=== PATIENT | male | born 1940 | race Caucasian/White ===

== ENCOUNTER 2023-08-03 05:41 | Observation (INO) ==
[~2023-08-03 05:41] MED LIST: Buffered Lidocaine 1% SYRIN 1 ml INTRADERM ONE; Lactated Ringers 1000 ml BAG 1,000 ML IV SCH; Metoclopramide 5 MG/ML VIAL (10 mg) IV PRN; Naloxone 0.4 mg VIAL 0.4 mg/ml 1 ml VIAL IV PRN; Ondansetron 4 mg VIAL 2 MG/ML 2 ml VIAL IV PRN
[2023-08-03] MEDS ORDERED: Tranexamic Acid 1 GM/100ML BAG 2,000 MG/200 ML BAG IV ONE (06:15)
[2023-08-03] MEDS ORDERED: ceFAZolin 2 GM PREMIX 2 GM/50 ML BAG ONE (06:15)
[2023-08-03 06:28] LABS: Rapid COVID-19 Molecular Undetected (Undetected)
[2023-08-03] MEDS ORDERED: Bupivacaine 0.25% SDV PF 10 ML VIAL INJ ONE (09:23)
[2023-08-03] MEDS ORDERED: fentaNYL 100 mcg/2 ml 50 MCG/ML VIAL ONE ×3 (09:32→14:22)
[2023-08-03] MEDS ORDERED: ceFAZolin 2 GM in NS PREMIX 0 GM/0 ML BAG IVPB ONE (09:33)
[2023-08-03] MEDS ORDERED: Phenylephrine IV 10 MG/ML 1 ml VIAL ONE (09:33)
[2023-08-03] MEDS ORDERED: Lidocaine 2% PF 5 ML VIAL ONE (09:33)
[2023-08-03] MEDS ORDERED: Midazolam 2 mg/2 ml VIAL 1 mg/ml 2 ml VIAL (2 mg) ONE (09:51)
[2023-08-03] MEDS ORDERED: BUPIVACAINE **LIPOSOME/PF 13.3 MG/ML (266MG/ 20ML) VIAL (RESTRICTED) INFIL ONE (10:00)
[2023-08-03] MEDS ORDERED: Dexamethasone IV 4 MG/ML VIAL 1 ml VIAL ONE (10:23)
[2023-08-03] MEDS ORDERED: Ondansetron 4 mg VIAL 2 MG/ML 2 ml VIAL ONE (10:23)
[2023-08-03] MEDS: HYDROcodone/ACETAMIN 5/325 mg TAB PO PRN ×2 (13:19→14:21)
[2023-08-03] MEDS ORDERED: HYDROcodone/ACETAMIN 5/325 mg TAB ONE ×2 (13:19→14:20)
[2023-08-03] MEDS: fentaNYL 100 mcg/2 ml 50 MCG/ML VIAL IV PRN ×7 (13:54→14:49)
[2023-08-03] MEDS ORDERED: Lactulose 30 ml UDC PO PRN (15:02)
[2023-08-03] MEDS ORDERED: Ondansetron 4 mg VIAL 2 MG/ML 2 ml VIAL IV PRN (15:02)
[2023-08-03] MEDS ORDERED: Morphine 2 MG/ML SYRINGE IV PRN (15:02)
[2023-08-03] MEDS ORDERED: Magnesium Hydroxide LIQ 30 ML UDC PO PRN (15:02)
[2023-08-03] MEDS ORDERED: Ondansetron ODT 4 mg TAB 4 MG TAB PO PRN (15:02)
[2023-08-03] MEDS: Lactated Ringers 1000 ml BAG 1,000 ML IV SCH (15:49)
[2023-08-03] MEDS: ceFAZolin 1 GM ADVAN 1 GM in NS 0.9% 50 ML 50 ML IVPB SCH (17:43)
[2023-08-03] MEDS ORDERED: Multivitamins/Minerals TAB PO SCH (21:30)
[2023-08-03] MEDS: Magnesium Hydroxide LIQ 30 ML UDC PO SCH (22:13)
[2023-08-04] MEDS ORDERED: Polyethylene Glycol 3350 17 GM PACKET PO PRN (00:01)
[2023-08-04] MEDS: Lactated Ringers 1000 ml BAG 1,000 ML IV SCH (02:09)
[2023-08-04] MEDS: ceFAZolin 1 GM ADVAN 1 GM in NS 0.9% 50 ML 50 ML IVPB SCH (02:10)
[2023-08-04 06:40] LABS: Platelet Count 235 10^3/uL (150-450)
[2023-08-04 07:01] LABS: Calcium 9.4 mg/dL (8.6-10.3); Creatinine, Serum 1.07 mg/dL (0.67-1.17); Potassium 4.3 mmol/L (3.5-5.0); eGFR CKD-EPI 69.7 (>60)
[2023-08-04 07:03] LABS: Hematocrit 38.9 % (38-53); Hemoglobin 13.2 g/dL (13.2-16.3); Mean Platelet Volume 8.5 fL (7.5-11.2)
[2023-08-04] MEDS ORDERED: Cholecalciferol (VIT D3) 1,000 unit TAB PO SCH (09:00)
[2023-08-04] MEDS ORDERED: Vitamin THERAPEUTIC TAB PO SCH (09:00)
[2023-08-04 09:38] VITALS: BP 105/61
[2023-08-04] MEDS: Magnesium Hydroxide LIQ 30 ML UDC PO SCH (09:38)
== END 2023-08-04 10:49 | disposition home or self-care (01) ==
LOC: OR 05:41 → SSU 05:41
PROVIDERS: ADMIT Orthopaedic Surgery Sports Medicine; ATTEND Orthopaedic Surgery Sports Medicine